=== PATIENT | male | born 1960 | race Caucasian/White ===

== ENCOUNTER 2021-03-22 08:12 | Outpatient (CLI) | payer OTHER, SELFPAY ==
--- NOTE | 2021-03-22 08:41 | MR_ITS ---
WS: [id number] MRI LUMBAR SPINE NONCONTRAST HISTORY: DORSALGIA COMPARISON: None available. TECHNIQUE: Sagittal and axial multisequence imaging is submitted. Small central disc protrusion at C3-4 with mild contact on the cervical cord. 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 Mild straightening of the normal lumbar lordosis. L4 retrolisthesis by 2 mm. No fracture or marrow ed regla. Mild disc desiccation. Height of the disc is preserved. Conus terminates normally at L1. L1-L2: Normal. L2-L3: Mild facet joint arthritis and ligamentum flavum hypertrophy. No stenosis. L3-L4: Mild bilateral ligamentum flavum and facet arthritis. Mild encroachment upon the subarticular recesses but no significant stenosis. L4-L5: Mild annular disc bulging with a central disc protrusion. Fluid in the facet joints and mild l igamentum flavum disease and facet arthritis. The disc bulging is contacting the L5 nerve roots in th e lateral recesses, LEFT greater than RIGHT. Only mild foraminal narrowing. L5-S1: Mild annular disc bulging and a tiny central disc protrusion. Moderate ligamentum flavum hyper trophy and facet arthritis. Facet arthritis encroaching into the thecal sac bilaterally. Mild narrowi ng of the subarticular recesses with encroachment upon the S1 nerve roots bilaterally. Nerve roots ar e becoming clumped within the periphery of the thecal sac. MR/MR lumbar spine wo con* [id number] IMPRESSION: 1. Mild disc encroachment upon the L5 nerve roots at the L4-5 level in the lat eral recesses, LEFT greater than RIGHT. 2. Bilateral subarticular recess narrowing with encroachment upon the S1 nerve roots bilaterally. 3. Mild arachnoiditis beginning at the L5-S1 level. 4. Mild encroachment upon the subarticular recesses at L3-4 without significan t stenosis.
== END 2021-03-22 08:13 | disposition home or self-care (01) ==
LOC: RADSHAW 08:18
PROVIDERS: Visit Provider Nurse Practitioner Family
DX: M54.5 Low back pain (principal); G03.9 Meningitis, unspecified
CPT/HCPCS: 72148